=== PATIENT | female | born 1985 | race Two or more races ===

== ENCOUNTER 2023-04-05 02:29 | Emergency (ER) | payer MEDICAID ==
[~2023-04-05] VITALS: Ht 170.2 cm; Wt 99.8 kg
[2023-04-05] MEDS ORDERED: ACETAMINOPHEN ES 500 MG TABLET ONE (03:41)
[2023-04-05] MEDS ORDERED: MAG HYDROX/AL HYDROX/SIMETH 30 ML UDC ONE (03:41)
[2023-04-05] MEDS ORDERED: FAMOTIDINE (20 MG) 20 MG TABLET ONE (03:42)
[2023-04-05] MEDS ORDERED: ONDANSETRON 4 MG TAB.RAPDIS ONE (03:42)
[2023-04-05 03:48] LABS: BASOPHILS # (AUTO) 0.1 K/uL (0.0-0.2); BASOPHILS % (AUTO) 0.6 % (0.0-2.0); EOSINOPHILS # (AUTO) 0.2 K/uL (0.0-0.7); HEMATOCRIT 40 % (33-45); HEMOGLOBIN 13.1 g/dL (11.5-14.8); LYMPHOCYTES # (AUTO) 3.7 K/uL (0.8-4.8); LYMPHOCYTES % (AUTO) 38.8 % (20.0-44.0); MEAN CORPUSCULAR HEMOGLOBIN 28 PG (26.0-33.0); MEAN CORPUSCULAR HGB CONC 33 g/dl (31.0-36.0); MEAN CORPUSCULAR VOLUME 83 fL (82-100); MONOCYTES # (AUTO) 0.6 K/uL (0.1-1.30); MONOCYTES % (AUTO) 6.5 % (2.0-12.0); NEUTROPHILS % (AUTO) 52.1 % (43.0-81.0); PLATELET COUNT (AUTO) 311 K/uL (150-450); RED BLOOD CELL COUNT(AUTO) 4.76 MIL/uL (4.0-5.2); RED CELL DISTRIBUTION WIDTH 13.4 % (11.5-15.0); WHITE BLOOD COUNT (AUTO) 9.6 K/uL (4.3-11.0)
[2023-04-05] MEDS: ONDANSETRON 4 MG TAB.RAPDIS SL ONE (03:53)
[2023-04-05] MEDS: ACETAMINOPHEN ES 500 MG TABLET PO ONE (03:53)
[2023-04-05] MEDS: FAMOTIDINE (20 MG) 20 MG TABLET PO ONE (03:53)
[2023-04-05] MEDS: MAG HYDROX/AL HYDROX/SIMETH 30 ML UDC PO ONE (03:53)
[2023-04-05 04:00] LABS: CALCIUM, SERUM 9.1 mg/dL (8.5-10.1); CREATININE 0.7 mg/dL (0.6-1.3); POTASSIUM 3.4 mmol/L (3.5-5.1)
[2023-04-05 04:03] LABS: ALBUMIN 3.6 g/dL (3.4-5.0); BILIRUBIN,DIRECT 0.1 mg/dL (0.0-0.2); BILIRUBIN,TOTAL 0.3 mg/dL (0.2-1.0); TOTAL PROTEIN, SERUM 7.4 g/dL (6.4-8.2)
[2023-04-05] MEDS ORDERED: ONDA4TAB11 PO (05:39)
[2023-04-05] MEDS ORDERED: FAMO20TA8 PO (05:39)
[2023-04-05 07:54] LABS: APPEARANCE,URINE TURBID (CLEAR); BILIRUBIN,URINE NEGATIVE (NEGATIVE); BLOOD, URINE TRACE-INTA Ery/uL (NEGATIVE); COLOR,URINE YELLOW (YELLOW); KETONES,URINE NEGATIVE (NEGATIVE); LEUKOCYTE ESTERASE ,URINE 1+ (NEGATIVE); NITRITE, URINE NEGATIVE (NEGATIVE); PREGNANCY TEST URINE QUAL NEGATIVE (NEGATIVE); PROTEIN,URINE NEGATIVE (NEGATIVE); UGLUCOSE NEGATIVE (NEGATIVE); UROBILINOGEN,URINE 0.2 EU/dL (0.2)
[2023-04-05 08:17] LABS: ADD URINE CULTURE YES; BACTERIA,URINE Moderate /HPF (None Seen); RBC,URINE 0-2 /HPF (0-2); SQUAMOUS EPITHELIAL CELL,UR Few /HPF (None Seen)
[2023-04-05] MEDS ORDERED: CEPH500C2 PO (08:33)
[2023-04-05 09:38] VITALS: BP 110/78; TEMP 98.2; O2SAT 98
== END 2023-04-05 09:38 | disposition home or self-care (01) ==
LOC: ER 02:49
DX: R10.13 Epigastric pain (principal); R11.0 Nausea
CPT/HCPCS: 99284; 85025; 80048; 87086; 83690; 80076; 84703; 81001; 36415; Q0162